=== PATIENT | female | born 1965 | race Caucasian/White ===

== ENCOUNTER 2016-06-23 17:06 | Emergency (ER) | payer MEDICARE, OTHER ==
[~2016-06-23 17:06] MED LIST: ALBU8I INH; ASPI81TA82 PO; CLON.1 PO; DARU800T PO; DESCOVY PO; GABA600T PO; LEVA750T PO; METH5SOL3 PO; ONDA4TAB7 PO; RANI150 PO; RITO100 PO; ROSU10; TAB-TAB PO; TIOT1AER INH; VALT1TAB26 PO
[2016-06-23 17:07] VITALS: BP 123/89; PULSE 97; RESP 17; TEMP 98.1; O2SAT 97
== END 2016-06-23 22:26 | disposition left against medical advice (07) ==
LOC: NETRI 17:06 → NED 17:45 → NETRI 21:09
DX: R10.9 Unspecified abdominal pain (principal); Z53.21 Procedure and treatment not carried out due to patient leaving prior to being seen by health care provider
CPT/HCPCS: 99281

== ENCOUNTER 2017-08-26 13:16 | Emergency (ER) | payer MEDICARE, OTHER ==
[~2017-08-26] VITALS: Ht 167.6 cm; Wt 60.0 kg
[2017-08-26 13:40] VITALS: BP 113/76; PULSE 86; RESP 17; TEMP 97.7; O2SAT 99
[2017-08-26] MEDS ORDERED: SODIUM CHLOR 0.9% 1000 ML INJ 1,000 ML IV ONE (18:00)
--- NOTE | 2017-08-26 18:24 | RADRPT ---
EXAM DATE/TIME: 08/26/2017 18:00 [place] COMPARISON: No previous studies available for comparison. INDICATIONS : Shortness of breath. Cough. MEDICAL HISTORY : Carcinoma, lung. SURGICAL HISTORY : Lobectomy. ENCOUNTER: Initial ACUITY: 2 weeks PAIN SCORE: 0/10 LOCATION: Bilateral chest FINDINGS: PA and lateral views of the chest demonstrate the lungs to be symmetrically aerated without evidence of mass, infiltrate or effusion. The lungs are hyperinflated. The cardiomediastinal contours are unr emarkable. Osseous structures are intact. CONCLUSION: Hyperinflated lungs. No focal abnormality is seen. Guille Jimenez MD on August 26, 2017 at 18:20 Board Certified Radiologist. This report was verified electronically.
[2017-08-26 18:38] LABS: ALKALINE PHOSPHATASE 91 U/L (45-117); TOTAL BILIRUBIN ADULT 0.2 MG/DL (0.2-1.0); TOTAL PROTEIN 8.6 GM/DL (6.4-8.2)
[2017-08-26 18:44] LABS: ALT (GPT) 26 U/L (10-53); AST (GOT) 25 U/L (15-37); AUTOMATED NEUTROPHIL # 4.6 TH/MM3 (1.8-7.7); BASOPHIL # 0.1 TH/MM3 (0-0.2); BASOPHIL % 0.9 % (0.0-2.0); BICARBONATE 24.8 MEQ/L (21.0-32.0); BLOOD UREA NITROGEN 9 MG/DL (7-18); CALCIUM 9.4 MG/DL (8.5-10.1); CHLORIDE 105 MEQ/L (98-107); EOSINOPHIL # 0.1 TH/MM3 (0-0.4); GLOMERULAR FILTRATION RATE 66 ML/MIN (>89); GLUCOSE,RANDOM 95 MG/DL (74-106); HEMATOCRIT 40.7 % (35.0-46.0); HEMOGLOBIN 14.1 GM/DL (11.6-15.3); LYMPH % 27.6 % (9.0-44.0); MEAN CELL VOLUME 91.4 FL (80.0-100.0); MEAN CORPUSCULAR HEMOGLOBIN 31.8 PG (27.0-34.0); MEAN CORPUSCULAR HGB CONC 34.8 % (32.0-36.0); MEAN PLATELET VOLUME 9.3 FL (7.0-11.0); MONO % 8.2 % (0.0-8.0); MONOCYTE # 0.6 TH/MM3 (0-0.9); NEUT % 62.3 % (16.0-70.0); PLATELET COUNT 302 TH/MM3 (150-450); RED BLOOD COUNT 4.45 MIL/MM3 (4.00-5.30); SODIUM (NA) 139 MEQ/L (136-145); WHITE BLOOD COUNT 7.4 TH/MM3 (4.0-11.0)
--- NOTE | 2017-08-26 18:51 | PD ---
HPI Chief Complaint: Dizziness Time Seen by Provider: 17:44 Travel History International Travel<30 days: No Contact w/Intl Traveler<30days: No Traveled to known affect area: No History of Present Illness HPI 51-year-old female history of a failed disease about the history HIV, lung cancer, who presents today with complaints of dizziness and weakness. The patient states that she is going through acute life stressors. She reports that she was recently homeless secondary to not being able to pay for an apartment. She reports that she was out on the streets for 2 weeks. She reports that she is now found a room to rent however she is feeling so bad she is worried that something may happen to her. Patient reports she has been off of her HIV medicines for at least 6 months. She also reports that she is going through severe stress and wishes to be Brooks acted. When asked why she was wanting to be Brooks acted, she reported she is very depressed. She denies any homicidal or suicidal ideation. She just reports that she cannot handle what is going on in her life at this point. PFSH Past Medical History Arthritis: Yes Asthma: Yes Autoimmune Disease: Yes Blood Disorders: Yes (HIV- AIDS) Bipolar Disorder: Yes Anxiety: Yes Depression: Yes Heart Rhythm Problems: No Cancer: Yes (CERVICAL CONE PROCEDURE, lung with r lobectomy) Cardiovascular Problems: Yes High Cholesterol: Yes Chemotherapy: No Chest Pain: No Congestive Heart Failure: No COPD: No Cerebrovascular Accident: No Diabetes: No Diminished Hearing: No Endocrine: No Gastrointestinal Disorders: Yes GERD: Yes Glaucoma: No Genitourinary: Yes (HX CEVICAL CA) Headaches: Yes Hepatitis: Yes (HX HEPATITIS B) Hypertension: No Immune Disorder: Yes (HIV+) Kidney Stones: No Musculoskeletal: Yes Neurologic: Yes (NEUROPATHY BILATERAL FEET AND LEGS. ) Psychiatric: Yes (PTSD) Reproductive: No Respiratory: Yes Immunizations Current: No Migraines: Yes Myocardial Infarction: No Radiation Therapy: No Renal Failure: No Seizures: No Sickle Cell Disease: No Sleep Apnea: Yes Thyroid Disease: No Ulcer: Yes ?: Not Menopausal: Yes : 3 Para: 3 Tubal Ligation: Yes Past Surgical History Abdominal Surgery: No AICD: No Body Medical Devices: HIV POSITIVE Cardiac Surgery: No Ear Surgery: No Endocrine Surgery: No Eye Surgery: No Genitourinary Surgery: No Gynecologic Surgery: Yes (TUBAL LIGATION / HYSTERECTOMY ) Hysterectomy: Yes Neurologic Surgery: No Oral Surgery: No Pacemaker: No Thoracic Surgery: Yes (right lobectomy) Other Surgery: Yes (CYSTS REMOVED LLE / SONYA SHOULDER SX ) Social History Alcohol Use: No Tobacco Use: Yes (E-CIGS DAILY / WEARS 7MG PATCH ) Substance Use: No (5 YRS) Allergies-Medications (Allergen,Severity, Reaction): Coded Allergies: No Known Allergies (Verified Adverse Reaction, Unknown, 08/26/17) Reported Meds & Prescriptions Reported Meds & Active Scripts Active Levaquin 750 Mg Tab (Levofloxacin) 750 Mg Tab 750 Mg PO DAILY Ventolin Hfa (Albuterol Sulfate) 8 Gm Aero 2 Puff INH Q6 PRN * SHAKE WELL BEFORE USE * Reported Prezista (Darunavir Ethanolate) 800 Mg Tab 800 Mg PO HS [Descovy] 200 Mg PO DAILY Crestor (Rosuvastatin Calcium) 10 Mg Tab 5 Mg DAILY Catapres 0.1 mg (Clonidine HCl) 0.1 Mg Tab 1 Tab PO EVERY OTHER DAY Ondansetron Odt (Ondansetron HCl) 4 Mg Tab 4 Mg PO ONCE Stiolto Respimat 2.5-2.5 Mcg/Act (Tiotropium [place]-Olodaterol) 1 Aer Aer 4 Gm INH DAILY Multivitamin (Multivitamins) 1 Tab Tab 1 Tab PO DAILY Zantac 150 Mg Tab (Ranitidine HCl) 150 Mg Tab 150 Mg PO BID Methadone Hcl (Methadone HCl) 5 Mg/5 Ml [place]ia 10 Mg PO QID Valtrex (Valacyclovir HCl) 1 Gm Tab 1 Gm PO DAILY Norvir (Ritonavir) 100 Mg Cap 100 Mg PO DAILY Gabapentin 600 Mg Tab 800 Mg PO QID Aspir-81 (Aspirin) 81 Mg Tab 81 Mg PO DAILY Review of Systems Except as stated in HPI: all other systems reviewed are Neg HENT: Positive: Lightheadedness, No: Headaches, Neck Pain Cardiovascular: No: Chest Pain or Discomfort Respiratory: Positive: Cough, No: Shortness of Breath Gastrointestinal: No: Nausea, Vomiting, Abdominal Pain Genitourinary: No: Frequency, Dysuria Musculoskeletal: Positive: Weakness, No: Pain Skin: No Rash Neurologic: Positive: Weakness, Dizziness, No: Headache Physical Exam Narrative GENERAL: Well-developed well-nourished female in no acute respiratory distress. Patient started to cry when I entered the room. She is very tearful and emotional. SKIN: Focused skin assessment warm/dry. HEAD: Atraumatic. Normocephalic. EYES: Pupils equal and round. No scleral icterus. No injection or drainage. ENT: No nasal bleeding or discharge. Mucous membranes pink and moist. NECK: Trachea midline. Supple. CARDIOVASCULAR: Regular rate and rhythm. No murmur appreciated. RESPIRATORY: No accessory muscle use. Clear to auscultation. Breath sounds equal bilaterally. GASTROINTESTINAL: Abdomen soft, non-tender, nondistended. MUSCULOSKELETAL: No obvious deformities. No clubbing. No cyanosis. No edema. NEUROLOGICAL: Awake and alert. No obvious cranial nerve deficits. Motor grossly within normal limits. Normal speech. PSYCHIATRIC: Tearful and emotionally labile. Data Data Last Documented VS Vital Signs Date Time Temp Pulse Resp B/P (MAP) Pulse Ox O2 Delivery O2 Flow Rate FiO2 08/26/17 13:40 97.7 86 17 113/76 (88) 99 Orders Orders Complete Blood Count With Diff (08/26/17 17:46) Comprehensive Metabolic Panel (08/26/17 17:46) Chest, Pa & Lat (08/26/17 17:46) Iv Access Insert/Monitor (08/26/17 17:46) Ecg Monitoring (08/26/17 17:46) Oximetry (08/26/17 17:46) Psych Screen (08/26/17 17:46) Sodium Chlor 0.9% 1000 Ml Inj (Ns 1000 M (08/26/17 18:00) Labs Laboratory Tests Test 08/26/17 18:01 White Blood Count 7.4 TH/MM3 Red Blood Count 4.45 MIL/MM3 Hemoglobin 14.1 GM/DL Hematocrit 40.7 % Mean Corpuscular Volume 91.4 FL Mean Corpuscular Hemoglobin 31.8 PG Mean Corpuscular Hemoglobin Concent 34.8 % Red Cell Distribution Width 13.0 % Platelet Count 302 TH/MM3 Mean Platelet Volume 9.3 FL Neutrophils (%) (Auto) 62.3 % Lymphocytes (%) (Auto) 27.6 % Monocytes (%) (Auto) 8.2 % Eosinophils (%) (Auto) 1.0 % Basophils (%) (Auto) 0.9 % Neutrophils # (Auto) 4.6 TH/MM3 Lymphocytes # (Auto) 2.0 TH/MM3 Monocytes # (Auto) 0.6 TH/MM3 Eosinophils # (Auto) 0.1 TH/MM3 Basophils # (Auto) 0.1 TH/MM3 CBC Comment DIFF FINAL Differential Comment Blood Urea Nitrogen 9 MG/DL Creatinine 0.90 MG/DL Random Glucose 95 MG/DL Total Protein 8.6 GM/DL Albumin 4.0 GM/DL Calcium Level 9.4 MG/DL Alkaline Phosphatase 91 U/L Aspartate Amino Transf (AST/SGOT) 25 U/L Alanine Aminotransferase (ALT/SGPT) 26 U/L Total Bilirubin 0.2 MG/DL Sodium Level 139 MEQ/L Potassium Level 3.8 MEQ/L Chloride Level 105 MEQ/L Carbon Dioxide Level 24.8 MEQ/L Anion Gap 9 MEQ/L Estimat Glomerular Filtration Rate 66 ML/MIN MDM Medical Decision Making Medical Screen Exam Complete: Yes Emergency Medical Condition: Yes Differential Diagnosis Metabolic derangement versus infection versus poor social situation versus acute life stressors Narrative Course 51-year-old female history of HIV, lung cancer, presents today with complaints of weakness. Patient also reports acute agitation and life stressors. Laboratory tests and chest x-ray are within normal limits. The patient wishes to speak with the psychiatric counselor. She wanted me to Brooks after however at this point she did not meet Brooks act criteria. While she has acute life stressors she is willing to be seen and come involuntary if she needs to. There is a psych screen pending. Case was signed out to Dr. Kramer. After she is screened, disposition will be per him. Diagnosis Primary Impression: Weakness Additional Impressions: Poor social situation History of HIV disease History of lung cancer Acute life stressors Eamon Stoner MD Aug 26, 2017 18:51
[2017-08-26] MEDS ORDERED: LORazepam 1 MG TAB PO ONE (20:45)
[2017-08-26 21:30] VITALS: BP 111/65
== END 2017-08-26 21:30 | disposition left against medical advice (07) ==
LOC: NEPE 13:16
DX: R53.1 Weakness (principal); B20 Human immunodeficiency virus [HIV] disease; Z59.0 Homelessness; J45.909 Unspecified asthma, uncomplicated; Z85.118 Personal history of other malignant neoplasm of bronchus and lung; Z72.0 Tobacco use
CPT/HCPCS: 71046; 80053; 85025; 96360; 99284; J7030

== ENCOUNTER 2018-04-12 18:42 | Observation (INO) ==
--- NOTE | 2018-04-12 19:12 | ED ---
HPI General Chief Complaint: Respiratory Symptoms Stated Complaint: CHEMO RAD [id number] AGO/MUCUS XYESTERDAY/RINGING EAR Time Seen by Provider: 04/12/18 19:02 History of Present Illness HPI Narrative: Patient is a 50-year-old female with a history of HIV and right partial lobectomy due to lung cancer presenting with a four-day history of upper respiratory symptoms. She states she has had a cough with yellow-green sputum production. Getting worse . no improvement with over the counter meds . Pt has oral candidal and esophagitis getting worse making her unable to eat , losing weight . pt on nystatin rinse no improvement. Pain in center chest , no rsponse to meds Related Data Home Medications Medication Instructions Recorded Confirmed Magic Mouth Wash 5 ml PO 04/12/18 04/12/18 citalopram 20 mg PO DAILY 04/12/18 04/12/18 dexamethasone 4 mg PO Q6H 04/12/18 04/12/18 rupfuxocbx-hzrxckvb-dobktr ala 1 tab PO DAILY 04/12/18 04/12/18 [Odefsey] famotidine 20 mg PO DAILY 04/12/18 04/12/18 gabapentin 800 mg PO QID 04/12/18 04/12/18 ondansetron HCl [Zofran] 8 mg PO TID PRN 04/12/18 04/12/18 prochlorperazine maleate 10 mg PO Q6-8H PRN 04/12/18 04/12/18 Allergies Allergy/AdvReac Type Severity Reaction Status Date / Time No Known Allergies Allergy Verified 04/12/18 18:53 Exam Narrative Exam Narrative: GENERAL: non toxic appearing SKIN: Warm and dry. HEAD: Atraumatic. Normocephalic. EYES: Pupils equal and round. No scleral icterus. No injection or drainage. ENT: No nasal bleeding or discharge. Mucous membranes pink and moist. NECK: Trachea midline. No JVD. CARDIOVASCULAR: Regular rate and rhythm. RESPIRATORY: No accessory muscle use. Clear to auscultation. Breath sounds equal bilaterally. GASTROINTESTINAL: Abdomen soft, non-tender, nondistended. Hepatic and splenic margins not palpable. MUSCULOSKELETAL: Extremities without clubbing, cyanosis, or edema. No obvious deformities. NEUROLOGICAL: Awake and alert. No obvious cranial nerve deficits. Motor grossly within normal limits. Five out of 5 muscle strength in the arms and legs. Normal speech. PSYCHIATRIC: Appropriate mood and affect; insight and judgment normal. Course Initial Documented Vital Signs Temperature 98.0 F 04/12/18 18:47 Pulse Rate 77 04/12/18 18:47 Respiratory Rate 16 04/12/18 18:47 Blood Pressure 120/60 04/12/18 18:47 Pulse Oximetry 99 04/12/18 18:47 Last Documented Vital Signs Temperature 98.8 F 04/13/18 04:00 Pulse Rate 104 H 04/13/18 08:30 Respiratory Rate 28 H 04/13/18 08:30 Blood Pressure 135/70 04/13/18 08:30 Pulse Oximetry 91 L 04/13/18 08:30 Medical Decision Making MDM Narrative Medical decision making narrative: diflucan PO liquid and admitted for further management of esphagitis Medical Screen Exam Complete: Yes Emergency Medical Condition: Yes Differential Diagnosis Differential Diagnosis: esophagitis vs pharyngitis vs PNA VS CAD VS [place] VS PTX other Lab Data Result diagrams: 04/12/18 20:19 04/13/18 04:46 Lab Results 04/12/18 04/12/18 04/12/18 Range/Units 20:19 20:19 20:19 CBC w Diff Auto diff final WBC 11.2 H (4.0-11.0) th/mm3 RBC 3.48 L (4.00-5.30) mil/mm3 Hgb 11.0 L (11.6-15.3) gm/dL Hct 33.3 L (35.0-46.0) % MCV 95.7 (80.0-100.0) fL MCH 31.6 (27.0-34.0) pg MCHC 33.1 (32.0-36.0) % RDW 13.2 (11.6-17.2) % Plt Count 251 (150-450) th/mm3 MPV 7.8 (7.0-11.0) fL Neut % (Auto) 88.2 H (16.0-70.0) % Lymph % (Auto) 7.6 L (9.0-44.0) % [place] % (Auto) 1.8 (0.0-8.0) % Eos % (Auto) 0.0 (0.0-4.0) % Baso % (Auto) 2.4 H (0.0-2.0) % Neut # (Auto) 9.9 H (1.8-7.7) th/mm3 Lymph # (Auto) 0.8 L (1.0-4.8) th/mm3 [place] # (Auto) 0.2 (0.0-0.9) th/mm3 Eos # (Auto) 0.0 (0.0-0.4) th/mm3 Baso # (Auto) 0.3 H (0.0-0.2) th/mm3 WBC Differential . Differential Comment . Sodium 137 (136-145) meq/L Potassium 4.1 (3.5-5.1) meq/L Chloride 102 (98-107) meq/L Carbon Dioxide 29.1 (21.0-32.0) meq/L Anion Gap 6 (5-15) meq/L BUN 23 H (7-18) mg/dL Creatinine 0.70 (0.50-1.00) mg/dL Estimated GFR 88 L (>89) mL/min Random Glucose 107 H (74-106) mg/dL Lactic Acid 2.0 (0.4-2.0) mmol/L Calcium 8.4 L (8.5-10.1) mg/dL Total Bilirubin 0.3 (0.2-1.0) mg/dL AST 14 L (15-37) U/L ALT 25 (10-53) U/L Alkaline Phosphatase 58 (45-117) U/L Total Protein 6.0 L (6.4-8.2) g/dL Albumin 2.9 L (3.4-5.0) g/dL Prealbumin (20-40) mg/dL Lipase 114 (73-393) U/L 04/13/18 04/13/18 Range/Units 04:46 04:46 CBC w Diff WBC (4.0-11.0) th/mm3 RBC (4.00-5.30) mil/mm3 Hgb (11.6-15.3) gm/dL Hct (35.0-46.0) % MCV (80.0-100.0) fL MCH (27.0-34.0) pg MCHC (32.0-36.0) % RDW (11.6-17.2) % Plt Count (150-450) th/mm3 MPV (7.0-11.0) fL Neut % (Auto) (16.0-70.0) % Lymph % (Auto) (9.0-44.0) % [place] % (Auto) (0.0-8.0) % Eos % (Auto) (0.0-4.0) % Baso % (Auto) (0.0-2.0) % Neut # (Auto) (1.8-7.7) th/mm3 Lymph # (Auto) (1.0-4.8) th/mm3 [place] # (Auto) (0.0-0.9) th/mm3 Eos # (Auto) (0.0-0.4) th/mm3 Baso # (Auto) (0.0-0.2) th/mm3 WBC Differential Differential Comment Sodium 137 (136-145) meq/L Potassium 4.0 (3.5-5.1) meq/L Chloride 102 (98-107) meq/L Carbon Dioxide 28.1 (21.0-32.0) meq/L Anion Gap 7 (5-15) meq/L BUN 24 H (7-18) mg/dL Creatinine 0.62 (0.50-1.00) mg/dL Estimated GFR Greater than 89 (>89) mL/min Random Glucose 109 H (74-106) mg/dL Lactic Acid (0.4-2.0) mmol/L Calcium 8.4 L (8.5-10.1) mg/dL Total Bilirubin 0.3 (0.2-1.0) mg/dL AST 10 L (15-37) U/L ALT 23 (10-53) U/L Alkaline Phosphatase 56 (45-117) U/L Total Protein 5.6 L (6.4-8.2) g/dL Albumin 2.8 L (3.4-5.0) g/dL Prealbumin 26 (20-40) mg/dL Lipase (73-393) U/L Discharge Plan Discharge Disposition Patient Disposition: 30 Still Patient Discharge Condition Condition: Stable Discharge Order Discharge Orders: AMA Discharge (Routine); Ordered 04/13/18 Ordered By: Krys Tai Physicians Team ED Provider: Edouard Vogt Primary Care Provider: Demetrio Tee Attending Provider: Krys Tai Other Providers: Harman Quintanilla Status ED Status: Left Department Discharge Information Discharge Date/Time: 04/12/18 23:12
[2018-04-12] MEDS ORDERED: Morphine Inj 4 MG/ML Vial IV.PUSH ONE (19:41)
[2018-04-12] MEDS ORDERED: Famotidine PF Inj 20 MG/2 ML Vial IV.PUSH ONE (19:42)
[2018-04-12] MEDS ORDERED: Nystatin Liq 500,000 UNIT/5 ML UDC SWISH-SWAL ONE (19:44)
[2018-04-12] MEDS ORDERED: Sodium Chlor 0.9% Inj 500 ML IV.SIG ONE (19:44)
[2018-04-12] MEDS ORDERED: Heparin Central Flush 100 UNIT/ML 5 ML Vial IV.FLUSH ONE (19:49)
[2018-04-12 20:33] LABS: Baso # (Auto) 0.3 th/mm3 (0.0-0.2); Baso % (Auto) 2.4 % (0.0-2.0); Hematocrit 33.3 % (35.0-46.0); Lymph # (Auto) 0.8 th/mm3 (1.0-4.8); Lymph % (Auto) 7.6 % (9.0-44.0); Mean Corpuscular HGB Conc 33.1 % (32.0-36.0); Mean Corpuscular Hemoglobin 31.6 pg (27.0-34.0); Mean Corpuscular Volume 95.7 fL (80.0-100.0); Mean Platelet Volume 7.8 fL (7.0-11.0); Mono # (Auto) 0.2 th/mm3 (0.0-0.9); Mono % (Auto) 1.8 % (0.0-8.0); Neut # (Auto) 9.9 th/mm3 (1.8-7.7); Neut % (Auto) 88.2 % (16.0-70.0); Platelet Count 251 th/mm3 (150-450); Red Blood Count 3.48 mil/mm3 (4.00-5.30); Red Cell Distribution Width 13.2 % (11.6-17.2); White Blood Count 11.2 th/mm3 (4.0-11.0)
[2018-04-12 20:40] LABS: Chloride 102 meq/L (98-107); Potassium 4.1 meq/L (3.5-5.1); Sodium 137 meq/L (136-145)
[2018-04-12 20:43] LABS: Albumin 2.9 g/dL (3.4-5.0); Anion Gap 6 meq/L (5-15); Calcium 8.4 mg/dL (8.5-10.1); Carbon Dioxide 29.1 meq/L (21.0-32.0); Glucose,Random 107 mg/dL (74-106); Lipase 114 U/L (73-393)
[2018-04-12 20:44] LABS: Blood Urea Nitrogen 23 mg/dL (7-18)
[2018-04-12 20:46] LABS: Alanine Aminotransferase 25 U/L (10-53); Aspartate Aminotransferase 14 U/L (15-37); Glomerular Filtration Rate 88 mL/min (>89)
[2018-04-12 20:49] LABS: Alkaline Phosphatase 58 U/L (45-117)
[2018-04-13] MEDS ORDERED: Morphine Inj 4 MG/ML Vial IV.PUSH ONE (02:52)
[2018-04-13 05:29] LABS: Chloride 102 meq/L (98-107); Sodium 137 meq/L (136-145)
[2018-04-13 05:32] LABS: Calcium 8.4 mg/dL (8.5-10.1)
[2018-04-13 05:33] LABS: Albumin 2.8 g/dL (3.4-5.0); Anion Gap 7 meq/L (5-15); Blood Urea Nitrogen 24 mg/dL (7-18); Carbon Dioxide 28.1 meq/L (21.0-32.0); Glucose,Random 109 mg/dL (74-106)
[2018-04-13 05:36] LABS: Alanine Aminotransferase 23 U/L (10-53); Aspartate Aminotransferase 10 U/L (15-37); Glomerular Filtration Rate Greater Than 89 mL/min (>89)
[2018-04-13 05:38] LABS: Total Protein 5.6 g/dL (6.4-8.2)
[2018-04-13 05:39] LABS: Alkaline Phosphatase 56 U/L (45-117)
[2018-04-13 05:55] VITALS: TEMP 98.8
[2018-04-13] MEDS ORDERED: FLUCONAZOLE 10 MG/ML PO SCH (09:00)
[2018-04-13] MEDS ORDERED: Nystatin/Diphenhydramine/Lidocaine Mouthwash (Adult) 120 ML Botttle SWISH-SPIT SCH (09:00)
--- NOTE | 2018-04-13 09:19 | P.HP ---
History of Present Illness Primary Care Physician: Demetrio Tee DO History of Present Illness: 50-year-old female with a history of HIV/AIDS, throat CA and lung CA and right partial lobectomy due to lung cancer presenting with a four-day history of upper respiratory symptoms. Reported cough with yellow-green sputum production. With oral pavel. Patient left AMA PMFSH - History History Provided By: Patient - Medical History Medical History: Medical History (Last Reviewed 04/13/18 @ 09:07 by Krys Tai MD) HIV (human immunodeficiency virus infection) Lung cancer Throat cancer - Surgical History Surgical History: Surgical History (Last Reviewed 04/13/18 @ 09:07 by Krys Tai MD) S/P lobectomy of lung - Tobacco History Second Hand Smoke Exposure: Yes Tobacco Use In Past 30 Days: Yes Smoking Status: Current every day smoker Tobacco Type: Cigarettes - Alcohol History How Often Do You Have a Drink Containing Alcohol: Never - Substance Use History Substance History: No History of Abuse - Immunization History Tetanus Immunization: >5 Years Medications and Allergies Active Medications: Active Medications Hydrocodone Bitart/Acetaminophen ([place] 5/325) 1 tab G-TUBE Q4H PRN PRN Reason: pain 1 to 10 Last Admin: 04/13/18 07:47 Dose: 1 tab Fluconazole (Diflucan Liq) 150 mg PO DAILY CHERISE Last Admin: 04/13/18 08:12 Dose: 150 mg Multi-Ingredient Mouthwash/Gargle (Magic Mouthwash Adult Liq) 5 ml SWISH-SPIT QID CHERISE Ondansetron HCl (Zofran Inj) 4 mg IV.PUSH Q6H PRN PRN Reason: NAUSEA OR VOMITING Last Admin: 04/13/18 08:21 Dose: 4 mg Allergies Allergy/AdvReac Type Severity Reaction Status Date / Time No Known Allergies Allergy Verified 04/12/18 18:53 Home Medications Medication Instructions Recorded Confirmed Type Magic Mouth Wash 5 ml PO 04/12/18 04/12/18 History citalopram 20 mg PO DAILY 04/12/18 04/12/18 History dexamethasone 4 mg PO Q6H 04/12/18 04/12/18 History nqrmsunrhb-yobxntgk-eyqvjo ala 1 tab PO DAILY 04/12/18 04/12/18 History [Odefsey] famotidine 20 mg PO DAILY 04/12/18 04/12/18 History gabapentin 800 mg PO QID 04/12/18 04/12/18 History ondansetron HCl [Zofran] 8 mg PO TID PRN 04/12/18 04/12/18 History prochlorperazine maleate 10 mg PO Q6-8H PRN 04/12/18 04/12/18 History Exam Vital signs: Vital Signs 04/12/18 18:47 04/12/18 21:15 04/12/18 22:40 Temperature 98.0 F Pulse Rate 77 58 L 82 Respiratory Rate 16 16 16 Blood Pressure 120/60 148/75 H 138/85 Pulse Oximetry 99 100 04/13/18 00:00 04/13/18 04:00 Temperature 98.2 F 98.8 F Pulse Rate 60 64 Respiratory Rate 22 20 Blood Pressure 130/77 128/74 Pulse Oximetry 99 99 Intake & Output 04/12/18 04/13/18 04/13/18 18:59 06:59 18:59 Intake Total 500 / 500 0 / 0 Output Total 500 / 500 500 / 500 Balance 0 / 0 -500 / -500 Weight 61 kg 61.6 kg Intake: IV 500 / 500 NS Inj 500 ML @ Wide Open IV. 500 / 500 SIG BOLUS ONE Rx#:[id number] Oral 0 / 0 0 / 0 Output: Urine 500 / 500 500 / 500 Other: # Voids 2 2 Weight On Admission 61.6 kg Narrative: Left AMA Results - Labs CBC & Chem 7: 04/12/18 20:19 04/13/18 04:46 Labs: Laboratory Results - last 24 hr 04/12/18 04/12/18 04/12/18 20:19 20:19 20:19 CBC w Diff Auto diff final WBC 11.2 H RBC 3.48 L Hgb 11.0 L Hct 33.3 L MCV 95.7 MCH 31.6 MCHC 33.1 RDW 13.2 Plt Count 251 MPV 7.8 Neut % (Auto) 88.2 H Lymph % (Auto) 7.6 L [place] % (Auto) 1.8 Eos % (Auto) 0.0 Baso % (Auto) 2.4 H Neut # (Auto) 9.9 H Lymph # (Auto) 0.8 L [place] # (Auto) 0.2 Eos # (Auto) 0.0 Baso # (Auto) 0.3 H WBC Differential . Differential Comment . Sodium 137 Potassium 4.1 Chloride 102 Carbon Dioxide 29.1 Anion Gap 6 BUN 23 H Creatinine 0.70 Estimated GFR 88 L Random Glucose 107 H Lactic Acid 2.0 Calcium 8.4 L Total Bilirubin 0.3 AST 14 L ALT 25 Alkaline Phosphatase 58 Total Protein 6.0 L Albumin 2.9 L Lipase 114 04/13/18 04:46 CBC w Diff WBC RBC Hgb Hct MCV MCH MCHC RDW Plt Count MPV Neut % (Auto) Lymph % (Auto) [place] % (Auto) Eos % (Auto) Baso % (Auto) Neut # (Auto) Lymph # (Auto) [place] # (Auto) Eos # (Auto) Baso # (Auto) WBC Differential Differential Comment Sodium 137 Potassium 4.0 Chloride 102 Carbon Dioxide 28.1 Anion Gap 7 BUN 24 H Creatinine 0.62 Estimated GFR Greater than 89 Random Glucose 109 H Lactic Acid Calcium 8.4 L Total Bilirubin 0.3 AST 10 L ALT 23 Alkaline Phosphatase 56 Total Protein 5.6 L Albumin 2.8 L Lipase Caprini VTE Risk Assessment Caprini VTE Risk Assessment: No/Low Risk (score <= 1) Caprini Risk Assessment Model: Point Value = 1 Point Value = 2 Point Value = 3 Point Value = 5 Age 41-60 Minor surgery BMI > 25 kg/m2 Swollen legs Varicose veins or History of unexplained or recurrent spontaneous Oral contraceptives or hormone replacement Sepsis (< 1 month) Serious lung disease, including pneumonia (< 1 month) Abnormal pulmonary function Acute myocardial infarction Congestive heart failure (< 1 month) History of inflammatory bowel disease Medical patient at bed rest Age 61-74 Arthroscopic surgery Major open surgery (> 45 min) Laparoscopic surgery (> 45 min) Malignancy Confined to bed (> 72 hours) Immobilizing plaster cast Central venous access Age >= 75 History of VTE Family history of VTE Factor V Leiden Prothrombin [id number] Lupus anticoagulant Anticardiolipin antibodies Elevated serum homocysteine Heparin-induced thrombocytopenia Other congenital or acquired thrombophilia Stroke (< 1 month) Elective arthroplasty Hip, pelvis, or leg fracture Acute spinal cord injury (< 1 month) Prophylaxis Regimen: Total Risk Factor Score Risk Level Prophylaxis Regimen 0-1 Low Early ambulation 2 Moderate Order ONE of the following: *Sequential Compression Device (SCD) *Heparin 5000 units SQ BID 3-4 Higher Order ONE of the following medications: *Heparin 5000 units SQ TID *Enoxaparin/Lovenox 40 mg SQ daily (WT < 150 kg, CrCl > 30 mL/min) *Enoxaparin/Lovenox 30 mg SQ daily (WT < 150 kg, CrCl > 10-29 mL/min) *Enoxaparin/Lovenox 30 mg SQ BID (WT < 150 kg, CrCl > 30 mL/min) AND/OR *Sequential Compression Device (SCD) 5 or more Highest Order ONE of the following medications: *Heparin 5000 units SQ TID (Preferred with Epidurals) *Enoxaparin/Lovenox 40 mg SQ daily (WT < 150 kg, CrCl > 30 mL/min) *Enoxaparin/Lovenox 30 mg SQ daily (WT < 150 kg, CrCl > 10-29 mL/min) *Enoxaparin/Lovenox 30 mg SQ BID (WT < 150 kg, CrCl > 30 mL/min) AND *Sequential Compression Device (SCD) Assessment and Plan - Plan 50-year-old female with a history of HIV/AIDS, throat CA and lung CA and right partial lobectomy due to lung cancer presenting with a four-day history of upper respiratory symptoms. Pavel esophagitis AIDS Failure to thrive Anorexia. Severe protein calorie malnutrition H/o Throat CA and lung CA and right partial lobectomy due to lung cancer Blood cx pending Started on fluconazole IV. Magic wash. Will consider ID consultation Dr Quintanilla hem/onc consulted. Check prealbumin, consult sterile processing technologist NPO Do swallow eval Restart home meds as appropriate DC plan: Patient left AMA
[2018-04-13 09:43] VITALS: BP 135/70; PULSE 104; RESP 28; O2SAT 91
--- NOTE | 2018-04-13 12:00 | P.AMA ---
AMA Note AMA Statement: Patient Cristina Haynes has decided to leave the hospital against medical advice. This patient has the capacity to refuse care and understands the risks of leaving, including permanent disability and/or , and has had an opportunity to ask questions about his/her condition. The patient has been informed that he/she may return for care at any time, and follow up has been arranged/advised. Discharge Disposition: Against Medical Advice Patient Condition on Discharge: Stable
== END 2018-04-13 09:45 | disposition left against medical advice (07) ==
LOC: PHED 18:42 → PHEDA 18:42 → PHICU 23:12
PROVIDERS: ADMIT Hospitalist; ATTEND Hospitalist

== ENCOUNTER 2018-05-30 12:11 | Inpatient (IN) ==
[2018-05-30] MEDS ORDERED: Vancomycin Inj 1,000 MG in Sodium Chlor 0.9% Inj 250 ML IV.SIG ONE (13:04)
[2018-05-30] MEDS ORDERED: Morphine Inj 4 MG/ML Vial IV.PUSH ONE (13:10)
[2018-05-30] MEDS ORDERED: Sod Chloride 0.9% Inj 1,000 ML IV.SIG SCH (13:15)
--- NOTE | 2018-05-30 13:21 | ED ---
HPI General Chief complaint: Skin/Abscess/Foreign Body Stated complaint: Poss Infection Time Seen by Provider: 05/30/18 12:55 Source: patient and family Mode of arrival: wheelchair Limitations: no limitations History of Present Illness HPI narrative: 52-year-old female that presents to the ED for evaluation of not feeling well and possible infection to her left thumb. Per patient she was admitted to the hospital for facial on Monday. Per patient she was seen there essentially for feeding tube malfunction and she had to be admitted as they could not fix the tube until the next day. apparently while she was there she developed a significant infection to her left thumb. From what it appears patient apparently had an incision and drainage of the wound under anesthesia and had surgery for this and she was put on antibiotics. Per patient she left AMA yesterday and today she got a call from the hospital that apparently she grew MRSA and a doctors that she needed to get seen. Per patient she try to call her infectious disease doctor she is HIV positive and per patient her last count was 500 and she was undetectable. Per patient unfortunately her doctor is not parts person and is on medication and she was hoping that she could guide her as to see what treatment she will require. She decided to come here because she did not like [facility]. She does not know who did the surgery on her tongue. She denies any fevers chills or sweats but does state feeling weak and tired. Per patient she lost her left index finger from a significant MRSA infection and she is concerned that she will have the same. On the physical exam she does appear to have another infected wound on her right hand. She is unsure as to how she got this and states that this is the similar presentation she had with the other thumb where he does go overnight. She states that she gets chemo and radiation for throat cancer and she last had it on Monday. Per patient she is done with the chemo and radiation for now. She does not know what her CD4 count has been for the past 3 months secondary to the chemo and radiation. She states that currently her pain is 6 out of 10. She states that she is also not feeling well and she feels like she cannot feed herself or take care of herself. Her son apparently takes care of her has been doing feedings through her feeding tube but she feels that she is not getting enough. She denies any diarrhea. No chest pain. No shortness of breath. She still has her port. Related Data Home Medications Medication Instructions Recorded Confirmed dexamethasone 4 mg PO Q6H 04/12/18 05/30/18 hqdswuupeg-dutkwuzt-hqwauk ala 1 tab PO DAILY 04/12/18 05/30/18 [Odefsey] famotidine 20 mg PO DAILY 04/12/18 05/30/18 gabapentin 800 mg PO QID 04/12/18 05/30/18 ondansetron HCl [Zofran] 8 mg PO TID PRN 04/12/18 05/30/18 prochlorperazine maleate 10 mg PO Q6-8H PRN 04/12/18 05/30/18 citalopram 40 mg PO DAILY 05/12/18 05/30/18 fluticasone 2 inh INHALATION HS 05/30/18 05/30/18 umeclidinium-vilanterol [Anoro 2 inh INHALATION Q24H 05/30/18 05/30/18 Ellipta] Allergies Allergy/AdvReac Type Severity Reaction Status Date / Time No Known Allergies Allergy Verified 05/12/18 16:38 Review of Systems ROS: all other systems reviewed are negative PMFSH History History Provided By: Patient and Family Member Medical History Medical History HIV (human immunodeficiency virus infection) (Acute) Lung cancer (Acute) Throat cancer (Acute) Surgical History Surgical History S/P lobectomy of lung (Acute) Family History Family History Other HTN (hypertension) Social History Social History Substance History: No History of Abuse Second Hand Smoke Exposure: Yes Smoking Status: Current every day smoker Tobacco Type: Cigarettes How Often Do You Have a Drink Containing Alcohol: Never Recent Travel in [place] within the Last 8 Weeks: No Recent Out of Country Travel within the Last 8 Weeks: No Exam Narrative Exam Narrative: GENERAL: Anxious but well groomed SKIN: Focused skin assessment warm/dry. HEAD: Atraumatic. Normocephalic. EYES: Pupils equal and round. No scleral icterus. No injection or drainage. ENT: No nasal bleeding or discharge. Mucous membranes pink and moist. Tongue is midline. No Uvula deviation. NECK: Trachea midline. No JVD. CARDIOVASCULAR: Regular rate and rhythm. No murmur appreciated. RESPIRATORY: No accessory muscle use. Clear to auscultation. Breath sounds equal bilaterally. GASTROINTESTINAL: Abdomen soft, non-tender, nondistended. Hepatic and splenic margins not palpable. Patient has full range of motion of all digits. Patient does appear to have a area of erythema and possible induration on the right hand which appears to be about 2 cm in diameter warm to touch. Slightly tender to touch but minimal. No purulence noted. Patient has a surgical wound on the left thumb where she has sutures as well as a packing in place. She does have purulence and redness noted on the thumb. Good capillary refill. Sensation intact bilaterally. MUSCULOSKELETAL: No obvious deformities. No clubbing. No cyanosis. No edema. Full range of motion of the upper and lower extremities bilaterally. 2+ pulses bilaterally. NEUROLOGICAL: Awake and alert. No obvious cranial nerve deficits. Motor grossly within normal limits. Normal speech. PSYCHIATRIC: Appropriate mood and affect; insight and judgment normal. Course Initial Documented Vital Signs Temperature 98.9 F 05/30/18 12:25 Pulse Rate 100 H 05/30/18 12:25 Respiratory Rate 20 05/30/18 12:25 Blood Pressure 123/84 05/30/18 12:25 Pulse Oximetry 100 05/30/18 12:25 Last Documented Vital Signs Temperature 98.1 F 05/31/18 04:00 Pulse Rate 69 05/31/18 04:00 Respiratory Rate 16 05/31/18 04:00 Blood Pressure 100/59 L 05/31/18 04:00 Pulse Oximetry 98 05/31/18 04:00 Medical Decision Making OSCAR Attestation OSCAR supervised visit: Yes Attestation: I, Dr. Stoner, have reviewed the advance practice practitioner's documentation and am in agreement, met with the patient face to face, made the diagnosis, and the medical decision making was done by me. *My assessment and Findings: MRSA of the right thumb. History of HIV disease. Throat cancer currently under treatment with radiation and chemo. Patient is immunocompromised by chemo and HIV disease. She will be admitted for IV antibiotics for her MRSA infection. She is previously lost her left index finger from MRSA. She understands the importance of not signing out a AMA and is willing to stay for treatment. MDM Narrative Medical decision making narrative: 52-year-old female who presents to the ED for evaluation of possible finger infection and not feeling well. Labs and imaging were ordered. Records were ordered as well. Patient was started on vancomycin to cover for MRSA as she states that she has had MRSA in the past and apparently the wound grew MRSA and that is what she was called and came here. She was given fluids as well as pain medication and Zofran IV. I suspect that patient will likely will require admission at least forearms for antibiotics secondary to her HIV status as well as her chemoradiation likely weakening her immune system. Labs and imaging did show elevated CRP as well as ESR, white blood cell count appears to be well but still low within normal limits. She does have low lymphocytes. She does have 2 active infections at this time. Because of her significant history to recommend admission. My attending Dr. Stoner evaluate the patient agrees with this plan. Vancomycin and Zosyn were started here. I was able to get the records from the admission she had and apparently she was evaluated by Dr. Kike Espinoza from orthopedics who performed an I&D and put packing on the wound and what appears to be on the May 28. Patient did have MRSA positive wound culture which is susceptible to vancomycin, Bactrim, tetracycline, rifampin, Levaquin, gentamicin, doxycycline, daptomycin. My attending still agrees recommendation for admission for further evaluation and treatment. Case discussed with Dr. Moore who agrees for obs admission. Medical Screen Exam Complete: Yes Emergency Medical Condition: Yes Differential Diagnosis Differential Diagnosis: Finger infection versus noncompliance versus cancer patient versus sepsis versus osteomyelitis Medical Records Medical records reviewed: Yes I reviewed the patient's medical records. Lab Data Lab results reviewed: Yes I reviewed the patient's lab results. Result diagrams: 05/30/18 13:00 05/30/18 13:00 Lab Results 05/30/18 05/30/18 05/30/18 Range/Units 13:00 13:00 13:00 WBC 4.5 (4.0-11.0) th/mm3 RBC 3.05 L (4.00-5.30) mil/mm3 Hgb 10.3 L (11.6-15.3) gm/dL Hct 30.5 L (35.0-46.0) % MCV 99.9 (80.0-100.0) fL MCH 33.9 (27.0-34.0) pg MCHC 33.9 (32.0-36.0) % RDW 17.8 H (11.6-17.2) % Plt Count 338 D (150-450) th/mm3 MPV 7.9 (7.0-11.0) fL Neut % (Auto) 76.1 H (16.0-70.0) % Lymph % (Auto) 15.9 (9.0-44.0) % Chaves % (Auto) 7.6 (0.0-8.0) % Eos % (Auto) 0.3 (0.0-4.0) % Baso % (Auto) 0.1 (0.0-2.0) % Neut # (Auto) 3.4 (1.8-7.7) th/mm3 Lymph # (Auto) 0.7 L (1.0-4.8) th/mm3 Chaves # (Auto) 0.3 (0.0-0.9) th/mm3 Eos # (Auto) 0.0 (0.0-0.4) th/mm3 Baso # (Auto) 0.0 (0.0-0.2) th/mm3 WBC Differential . Differential Comment Auto diff final ESR (0-30) mm/hr Sodium 138 (136-145) meq/L Potassium 3.9 (3.5-5.1) meq/L Chloride 105 (98-107) meq/L Carbon Dioxide 26.0 (21.0-32.0) meq/L Anion Gap 7 (5-15) meq/L BUN 16 (7-18) mg/dL Creatinine 0.66 (0.50-1.00) mg/dL Estimated GFR Greater than 89 (>89) mL/min Random Glucose 90 (74-106) mg/dL Lactic Acid 0.7 (0.4-2.0) mmol/L Calcium 8.9 (8.5-10.1) mg/dL Magnesium 1.9 (1.5-2.5) mg/dL Total Bilirubin 0.4 (0.2-1.0) mg/dL AST 10 L (15-37) U/L ALT 18 (10-53) U/L Alkaline Phosphatase 75 (45-117) U/L C-Reactive Protein 4.42 H (0.00-0.30) mg/dL Total Protein 7.0 (6.4-8.2) g/dL Albumin 3.4 (3.4-5.0) g/dL Urine Color (Yellw/Straw) Urine Clarity (Clear) Urine pH (5.0-8.5) Ur Specific [place] (1.002-1.035) Urine Protein (Neg-Trace) mg/dL Urine Glucose (UA) (Negative) mg/dL Urine Ketones (Negative) mg/dL Urine Occult Blood (Negative) Urine Nitrate (Negative) Urine Bilirubin (Negative) Urine Urobilinogen (Less than 2) mg/dL Ur Leukocyte Esterase (Negative) Urine RBC (0-3) /hpf Urine WBC (0-5) /hpf Ur Squamous Epith Cells (0-5) /hpf Amorphous Sediment (None) /hpf Urine Mucus (Occasional) /lpf Micro UA Comment Ur Microscopic Review Urine Culture Comments 05/30/18 05/30/18 Range/Units 13:00 14:40 WBC (4.0-11.0) th/mm3 RBC (4.00-5.30) mil/mm3 Hgb (11.6-15.3) gm/dL Hct (35.0-46.0) % MCV (80.0-100.0) fL MCH (27.0-34.0) pg MCHC (32.0-36.0) % RDW (11.6-17.2) % Plt Count (150-450) th/mm3 MPV (7.0-11.0) fL Neut % (Auto) (16.0-70.0) % Lymph % (Auto) (9.0-44.0) % Chaves % (Auto) (0.0-8.0) % Eos % (Auto) (0.0-4.0) % Baso % (Auto) (0.0-2.0) % Neut # (Auto) (1.8-7.7) th/mm3 Lymph # (Auto) (1.0-4.8) th/mm3 Chaves # (Auto) (0.0-0.9) th/mm3 Eos # (Auto) (0.0-0.4) th/mm3 Baso # (Auto) (0.0-0.2) th/mm3 WBC Differential Differential Comment ESR 64 H (0-30) mm/hr Sodium (136-145) meq/L Potassium (3.5-5.1) meq/L Chloride (98-107) meq/L Carbon Dioxide (21.0-32.0) meq/L Anion Gap (5-15) meq/L BUN (7-18) mg/dL Creatinine (0.50-1.00) mg/dL Estimated GFR (>89) mL/min Random Glucose (74-106) mg/dL Lactic Acid (0.4-2.0) mmol/L Calcium (8.5-10.1) mg/dL Magnesium (1.5-2.5) mg/dL Total Bilirubin (0.2-1.0) mg/dL AST (15-37) U/L ALT (10-53) U/L Alkaline Phosphatase (45-117) U/L C-Reactive Protein (0.00-0.30) mg/dL Total Protein (6.4-8.2) g/dL Albumin (3.4-5.0) g/dL Urine Color Yellow (Yellw/Straw) Urine Clarity Cloudy H (Clear) Urine pH 7.0 (5.0-8.5) Ur Specific [place] 1.014 (1.002-1.035) Urine Protein Negative (Neg-Trace) mg/dL Urine Glucose (UA) Negative (Negative) mg/dL Urine Ketones Trace H (Negative) mg/dL Urine Occult Blood Small H (Negative) Urine Nitrate Negative (Negative) Urine Bilirubin Negative (Negative) Urine Urobilinogen Less than 2 (Less than 2) mg/dL Ur Leukocyte Esterase Negative (Negative) Urine RBC 2 (0-3) /hpf Urine WBC 1 (0-5) /hpf Ur Squamous Epith Cells 4 (0-5) /hpf Amorphous Sediment Rare H (None) /hpf Urine Mucus Few H (Occasional) /lpf Micro UA Comment Culture not ind Ur Microscopic Review Not Reportable Urine Culture Comments Culture not ind Imaging Data Attestation: I personally reviewed and interpreted this imaging study as follows : Radiologist's impression: Chest X-Ray 05/30/18 13:03 CONCLUSION: No focal or acute infiltrates. No significant change compared to the prior study. Finger X-Ray 05/30/18 13:03 CONCLUSION: 1. Soft tissue swelling involving the tip of the left thumb. 2. No fracture, dislocation or focal bony lesion noted. 3. Status post amputation of the left second digit. Discharge Plan Discharge Disposition Patient Disposition: ED Admit(ED Internal Use Only) Discharge Order Discharge Orders: ED Use Only Admit Order (Routine); Ordered 05/30/18 Ordered By: Gautam Torres Discharge Details Diagnosis: Abscess, Cellulitis, Acquired immunocompromised state Physicians Team ED Provider: Eamon Stoner ED Midlevel Provider: Gautam Torres Primary Care Provider: Demetrio Tee Attending Provider: Oscar Kelly Other Providers: Lindsay Harper Status ED Status: Left Department Discharge Information Discharge Date/Time: 05/30/18 19:29
[2018-05-30 13:40] LABS: Baso % (Auto) 0.1 % (0.0-2.0); Eos % (Auto) 0.3 % (0.0-4.0); Hematocrit 30.5 % (35.0-46.0); Hemoglobin 10.3 gm/dL (11.6-15.3); Lymph # (Auto) 0.7 th/mm3 (1.0-4.8); Lymph % (Auto) 15.9 % (9.0-44.0); Mean Corpuscular HGB Conc 33.9 % (32.0-36.0); Mean Corpuscular Hemoglobin 33.9 pg (27.0-34.0); Mean Corpuscular Volume 99.9 fL (80.0-100.0); Mean Platelet Volume 7.9 fL (7.0-11.0); Mono # (Auto) 0.3 th/mm3 (0.0-0.9); Mono % (Auto) 7.6 % (0.0-8.0); Neut # (Auto) 3.4 th/mm3 (1.8-7.7); Neut % (Auto) 76.1 % (16.0-70.0); Platelet Count 338 th/mm3 (150-450); Red Blood Count 3.05 mil/mm3 (4.00-5.30); Red Cell Distribution Width 17.8 % (11.6-17.2); White Blood Count 4.5 th/mm3 (4.0-11.0)
[2018-05-30 13:51] LABS: Alanine Aminotransferase 18 U/L (10-53); Albumin 3.4 g/dL (3.4-5.0); Anion Gap 7 meq/L (5-15); Aspartate Aminotransferase 10 U/L (15-37); Blood Urea Nitrogen 16 mg/dL (7-18); C-Reactive Protein 4.42 mg/dL (0.00-0.30); Calcium 8.9 mg/dL (8.5-10.1); Chloride 105 meq/L (98-107); Glomerular Filtration Rate Greater Than 89 mL/min (>89); Glucose,Random 90 mg/dL (74-106); Magnesium 1.9 mg/dL (1.5-2.5); Potassium 3.9 meq/L (3.5-5.1); Sodium 138 meq/L (136-145)
[2018-05-30 13:53] LABS: Alkaline Phosphatase 75 U/L (45-117)
--- NOTE | 2018-05-30 14:22 | XR ---
EXAM DATE: 05/30/2018 2:17 PM EST AGE/SEX: 52 years / Female INDICATIONS: Fever. CLINICAL DATA: This is the patient's initial encounter. Patient reports that signs and symptoms have been present for 1 day and indicates a pain score of 0/10. MEDICAL/SURGICAL HISTORY: Carcinoma, lung. Carcinoma, pharyngeal. . Lobectomy. Infuse a port. COMPARISON: [facility] [place]ST PA & LAT, 08/26/2017. . FINDINGS: A single AP view of the chest demonstrates the lungs to be symmetrically aerated without evidence of mass, infiltrate or effusion. The cardiomediastinal contours are unremarkable. Osseous structures a re intact. There is a right-sided Bnnlij-d-Hsow in place. There is no pneumothorax. CONCLUSION: No focal or acute infiltrates. No significant change compared to the prior study. Electronically signed by: Sunny Covarrubias MD Board Certified Radiologist 05/30/2018 2:21 PM EST
--- NOTE | 2018-05-30 14:32 | XR ---
EXAM DATE: 05/30/2018 2:25 PM EST AGE/SEX: 52 years / Female INDICATIONS: drainage from tip of thumb. CLINICAL DATA: This is the patient's initial encounter. Patient reports that signs and symptoms have been present for 1 day and indicates a pain score of 0/10. MEDICAL/SURGICAL HISTORY: Carcinoma, lung. Carcinoma, pharyngeal. . Lobectomy. infuse a port. COMPARISON: No prior exams available for comparison. FINDINGS: There is soft tissue swelling involving the tip of the left thumb. No fracture, dislocation or focal bony lesion within the first phalanges is confirmed. The patient is status post amputation of the lef t second digit. CONCLUSION: 1. Soft tissue swelling involving the tip of the left thumb. 2. No fracture, dislocation or focal bony lesion noted. 3. Status post amputation of the left second digit. Electronically signed by: Luiz Sharma MD Board Certified Radiologist 05/30/2018 2:31 PM EST
[2018-05-30 15:01] LABS: Amorphous Sediment,Urine Rare /hpf; Bilirubin,Urine Negative (Negative); Clarity,Urine Cloudy (Clear); Color,Urine Yellow (Yellw/Straw); Glucose,Urine (UA) Negative (Negative); Leukocyte Esterase,Urine Negative (Negative); Mucus,Urine Few /lpf (Occasional); Nitrite,Urine Negative (Negative); Specific Gravity,Urine 1.014 (1.002-1.035); Squamous Epithelial Cell,Urine 4 /hpf (0-5)
[2018-05-30] MEDS ORDERED: Piperacil/Tazo 3.375 GM Premix 3.375 GM/50 ML PIGGYBACK IV.SIG ONE (15:15)
[2018-05-30] MEDS ORDERED: Vancomycin Consult Pharmacy OTHER PRN (18:35)
--- NOTE | 2018-05-30 18:47 | P.HP ---
History of Present Illness Primary Care Physician: Demetrio Tee DO History of Present Illness: 52-year-old white female being admitted for L thumb cellulitis. Hx of HIV and throat CA. Patient presented to [place] today after being called by [facility] that her wound culture from her left thumb for which she underwent a I&D w/ packing and then left AMA a few days ago was growing MRSA. Patient left AMA yesterday morning, since then she says she is felt subjective fevers, N/V, watery stools and worsening thumb pain. Patient not sure exactly what antibiotics she was receiving there. She underwent I&D by Dr. Stephen Espinoza w/ packing, and had her PEG tube adjusted by Dr. Marcos Alberts. Patient states that her thumb infx started when she had a splinter injury just under a week ago, pulled the splinter out with her teeth. She also noted that her PEG tube was not functioning where she wanted it and thus she presented to the [facility] ED. Patient states she specifically decided come back to [place] because this was the hospital that she had her chemoradiation completed for her throat cancer.In the ED here she has no elevated white count, blood work is unremarkable except for ESR up at 64. Blood cultures were pulled. Given a dose of vancomycin and Zosyn. Sees Dr. Joesph Jacobs for her HIV, says she is on 1 antimicrobial a day for HAART. Says that she is previously lost her left index finger secondary to an MRSA infection. Inpatient Certification: I certify that the inpatient services were ordered in accordance with Medicare regulations governing the order. This includes certification that hospital inpatient services are reasonable and necessary and in the case of services not specified as inpatient-only under 42 CFR 419.22(n), that they are appropriately provided as inpatient services in accordance to with the 2-midnight benchmark under 43 CFR 412.3(e) Estimated Total Length of Stay (Days): 2 Plans for Post Hospital Care: Not yet determined Review of Systems All other systems reviewed negative except as stated in HPI PMFSH - History History Provided By: Patient, Family Member - Medical History Medical History: Medical History (Last Reviewed 05/30/18 @ 18:39 by Mendoza Moore MD) HIV (human immunodeficiency virus infection) Lung cancer Throat cancer - Surgical History Surgical History: Surgical History (Last Reviewed 05/30/18 @ 18:39 by Mendoza Moore MD) S/P lobectomy of lung - Family History Family History: Family History (Last Updated 05/30/18 @ 18:39 by Mendoza Moore MD) Other HTN (hypertension) - Social History I have reviewed the patient's Social History: Yes - Tobacco History Second Hand Smoke Exposure: Yes Tobacco Use In Past 30 Days: Yes Smoking Status: Current every day smoker Tobacco Type: Cigarettes - Alcohol History How Often Do You Have a Drink Containing Alcohol: Never - Substance Use History Substance History: No History of Abuse - Travel History Recent Travel in the [place] Within the Last 8 Weeks: No Recent Travel Out of the Country Within the Last 8 Weeks: No - Immunization History Tetanus Immunization: <5 Years Medications and Allergies Active Medications: Active Medications Sodium Chloride (Ns Flush) 2 ml IV.FLUSH BID CHERISE Sodium Chloride (Ns Flush) 2 ml IV.FLUSH PRN PRN PRN Reason: FLUSH AFTER USING IV ACCESS Allergies Allergy/AdvReac Type Severity Reaction Status Date / Time No Known Allergies Allergy Verified 05/12/18 16:38 Home Medications Medication Instructions Recorded Confirmed Type dexamethasone 4 mg PO Q6H 04/12/18 05/30/18 History mbpebhktdy-zcyljqio-fyqhsa ala 1 tab PO DAILY 04/12/18 05/30/18 History [Odefsey] famotidine 20 mg PO DAILY 04/12/18 05/30/18 History gabapentin 800 mg PO QID 04/12/18 05/30/18 History ondansetron HCl [Zofran] 8 mg PO TID PRN 04/12/18 05/30/18 History prochlorperazine maleate 10 mg PO Q6-8H PRN 04/12/18 05/30/18 History citalopram 40 mg PO DAILY 05/12/18 05/30/18 History fluticasone 2 inh INHALATION HS 05/30/18 05/30/18 History umeclidinium-vilanterol [Anoro 2 inh INHALATION Q24H 05/30/18 05/30/18 History Ellipta] Exam Vital signs: Vital Signs 05/30/18 12:25 05/30/18 16:30 Temperature 98.9 F Pulse Rate 100 H 89 Respiratory Rate 20 14 Blood Pressure 123/84 134/64 Pulse Oximetry 100 99 Intake & Output 05/29/18 05/30/18 05/30/18 18:59 06:59 18:59 Intake Total 1300 / 1300 Balance 1300 / 1300 Weight 53.977 kg Intake: IV 1300 / 1300 Zosyn 3.375 GM Premix 3.375 gm 50 / 50 In 50 ml @ 100 mls/hr IV.SIG ONCE ONE Rx#:[id number] NS Inj 1,000 ML @ 1000 mls/hr 1000 / 1000 IV.SIG BOLUS CHERISE Rx#:[id number] Vancomycin Inj 1,000 MG In NS 250 / 250 Inj 250 ML @ 250 mls/hr IV.SIG ONCE ONE Rx#:[id number] Narrative: VS: afebrile GENERAL: Well-nourished middle-aged white female who appears to be in no acute distress other than anxiety SKIN: Warm and dry. Chemotherapy port over right chest EYES: No scleral icterus. No injection or drainage. ENT: No nasal bleeding or discharge. Mucous membranes pink and moist. CARDIOVASCULAR: Regular rate and rhythm. no murmurs RESPIRATORY: No accessory muscle use. Clear to auscultation. Breath sounds equal bilaterally. GASTROINTESTINAL: Abdomen soft, non-tender, nondistended. Hepatic and splenic margins not palpable. Extremities: No clubbing, cyanosis, or edema. No obvious deformities. MUSCULOSKELETAL: Left thumb is slightly edematous with packing in place with no cristian erythema, has intact range of motion of the left hand, has a stump at her index finger due to a prior surgery in the past. There is a mild area of non- impressive erythema just proximal to her second MCP dorsal aspect hand area there is mildly tender to palpation. NEUROLOGICAL: Awake and alert. No obvious cranial nerve deficits. No facial droop nor slurred speech noted. PSYCHIATRIC: Appropriate mood and affect; insight and judgment normal. Results - Labs CBC & Chem 7: 05/30/18 13:00 05/30/18 13:00 Labs: Laboratory Results - last 24 hr 05/30/18 05/30/18 05/30/18 13:00 13:00 13:00 WBC 4.5 RBC 3.05 L Hgb 10.3 L Hct 30.5 L MCV 99.9 MCH 33.9 MCHC 33.9 RDW 17.8 H Plt Count 338 D MPV 7.9 Neut % (Auto) 76.1 H Lymph % (Auto) 15.9 [place] % (Auto) 7.6 Eos % (Auto) 0.3 Baso % (Auto) 0.1 Neut # (Auto) 3.4 Lymph # (Auto) 0.7 L [place] # (Auto) 0.3 Eos # (Auto) 0.0 Baso # (Auto) 0.0 WBC Differential . Differential Comment Auto diff final ESR Sodium 138 Potassium 3.9 Chloride 105 Carbon Dioxide 26.0 Anion Gap 7 BUN 16 Creatinine 0.66 Estimated GFR Greater than 89 Random Glucose 90 Lactic Acid 0.7 Calcium 8.9 Magnesium 1.9 Total Bilirubin 0.4 AST 10 L ALT 18 Alkaline Phosphatase 75 C-Reactive Protein 4.42 H Total Protein 7.0 Albumin 3.4 Urine Color Urine Clarity Urine pH Ur Specific [place] Urine Protein Urine Glucose (UA) Urine Ketones Urine Occult Blood Urine Nitrate Urine Bilirubin Urine Urobilinogen Ur Leukocyte Esterase Urine RBC Urine WBC Ur Squamous Epith Cells Amorphous Sediment Urine Mucus Micro UA Comment Ur Microscopic Review Urine Culture Comments 05/30/18 05/30/18 13:00 14:40 WBC RBC Hgb Hct MCV MCH MCHC RDW Plt Count MPV Neut % (Auto) Lymph % (Auto) [place] % (Auto) Eos % (Auto) Baso % (Auto) Neut # (Auto) Lymph # (Auto) [place] # (Auto) Eos # (Auto) Baso # (Auto) WBC Differential Differential Comment ESR 64 H Sodium Potassium Chloride Carbon Dioxide Anion Gap BUN Creatinine Estimated GFR Random Glucose Lactic Acid Calcium Magnesium Total Bilirubin AST ALT Alkaline Phosphatase C-Reactive Protein Total Protein Albumin Urine Color Yellow Urine Clarity Cloudy H Urine pH 7.0 Ur Specific [place] 1.014 Urine Protein Negative Urine Glucose (UA) Negative Urine Ketones Trace H Urine Occult Blood Small H Urine Nitrate Negative Urine Bilirubin Negative Urine Urobilinogen Less than 2 Ur Leukocyte Esterase Negative Urine RBC 2 Urine WBC 1 Ur Squamous Epith Cells 4 Amorphous Sediment Rare H Urine Mucus Few H Micro UA Comment Culture not ind Ur Microscopic Review Not Reportable Urine Culture Comments Culture not ind - Imaging Impressions Chest X-Ray 05/30/18 13:03 CONCLUSION: No focal or acute infiltrates. No significant change compared to the prior study. Finger X-Ray 05/30/18 13:03 CONCLUSION: 1. Soft tissue swelling involving the tip of the left thumb. 2. No fracture, dislocation or focal bony lesion noted. 3. Status post amputation of the left second digit. Caprini VTE Risk Assessment Caprini VTE Risk Assessment: Moderate/High Risk (score >= 2) Caprini Risk Assessment Model: Point Value = 1 Point Value = 2 Point Value = 3 Point Value = 5 Age 41-60 Minor surgery BMI > 25 kg/m2 Swollen legs Varicose veins or History of unexplained or recurrent spontaneous Oral contraceptives or hormone replacement Sepsis (< 1 month) Serious lung disease, including pneumonia (< 1 month) Abnormal pulmonary function Acute myocardial infarction Congestive heart failure (< 1 month) History of inflammatory bowel disease Medical patient at bed rest Age 61-74 Arthroscopic surgery Major open surgery (> 45 min) Laparoscopic surgery (> 45 min) Malignancy Confined to bed (> 72 hours) Immobilizing plaster cast Central venous access Age >= 75 History of VTE Family history of VTE Factor V Leiden Prothrombin [id number] Lupus anticoagulant Anticardiolipin antibodies Elevated serum homocysteine Heparin-induced thrombocytopenia Other congenital or acquired thrombophilia Stroke (< 1 month) Elective arthroplasty Hip, pelvis, or leg fracture Acute spinal cord injury (< 1 month) Prophylaxis Regimen: Total Risk Factor Score Risk Level Prophylaxis Regimen 0-1 Low Early ambulation 2 Moderate Order ONE of the following: *Sequential Compression Device (SCD) *Heparin 5000 units SQ BID 3-4 Higher Order ONE of the following medications: *Heparin 5000 units SQ TID *Enoxaparin/Lovenox 40 mg SQ daily (WT < 150 kg, CrCl > 30 mL/min) *Enoxaparin/Lovenox 30 mg SQ daily (WT < 150 kg, CrCl > 10-29 mL/min) *Enoxaparin/Lovenox 30 mg SQ BID (WT < 150 kg, CrCl > 30 mL/min) AND/OR *Sequential Compression Device (SCD) 5 or more Highest Order ONE of the following medications: *Heparin 5000 units SQ TID (Preferred with Epidurals) *Enoxaparin/Lovenox 40 mg SQ daily (WT < 150 kg, CrCl > 30 mL/min) *Enoxaparin/Lovenox 30 mg SQ daily (WT < 150 kg, CrCl > 10-29 mL/min) *Enoxaparin/Lovenox 30 mg SQ BID (WT < 150 kg, CrCl > 30 mL/min) AND *Sequential Compression Device (SCD) Assessment and Plan - Plan 52-year-old white female being admitted for cellulitis of the left thumb. [facility] for PEG tube issues, had PEG tube adjusted , underwent I&D of left thumb for abscess and packing. Left AMA because she felt that the hospital was not meeting up to her expectations. Hemodynamically stable upon admit. L Thumb MRSA Cellulitis s/P I&D with packing by hand surgery Dr. Espinoza at [facility]. - Pt refusing to go back to [facility] . Has had no abx for last 24 hrs with worsening pain. Consulting hand surgery here. -BC's specimens obtained in ED here -Continue vancomycin given susceptibilities from OSH Diarrhea -check for C. diff, otherwise likely 2/2 feeds HIV - continue home Odefsey Mood disorder Continue home citalopram COPD Continue home ANORO Throat Cancer -decadron Nothing by mouth, f/u outpt w/ oncologists Tube feeds
[2018-05-30] MEDS ORDERED: FLUTICASONE INH SCH (21:00)
[2018-05-30] MEDS ORDERED: Morphine Inj 4 MG/ML Vial IV.PUSH PRN (21:40)
[2018-05-30] MEDS: Gabapentin 400 MG Capsule PO SCH (22:25)
[2018-05-30] MEDS: Umeclindinium 62.5 MCG/Vilanterol 25 MCG Inhaler INH SCH (23:59)
[2018-05-31] MEDS: Vancomycin Inj 800 MG in Sodium Chlor 0.9% Inj 250 ML IV.SIG SCH ×2 (02:53→13:59)
[2018-05-31] MEDS ORDERED: EMTRICITABINE PO SCH (09:00)
[2018-05-31] MEDS ORDERED: TENOFOVIR ALAFENAMIDE PO SCH (09:00)
[2018-05-31] MEDS ORDERED: RILPIVIRINE PO SCH (09:00)
[2018-05-31] MEDS: Gabapentin 400 MG Capsule PO SCH ×5 (09:43→23:51)
--- NOTE | 2018-05-31 10:32 | P.PN ---
Subjective Interval history: Follow-up left thumb cellulitis May 31, 2018-patient seen and examined, complains of poorly controlled pain left thumb. Currently afebrile. Denies any diarrhea. Physical Exam Vital signs: Vital Signs 05/30/18 12:25 05/30/18 16:30 05/30/18 19:24 Temperature 98.9 F Pulse Rate 100 H 89 84 Respiratory Rate 20 14 16 Blood Pressure 123/84 134/64 130/61 Pulse Oximetry 100 99 99 05/30/18 20:00 05/31/18 00:00 05/31/18 04:00 Temperature 98.3 F 97.8 F 98.1 F Pulse Rate 78 77 69 Respiratory Rate 14 16 16 Blood Pressure 113/65 101/69 100/59 L Pulse Oximetry 98 99 98 05/31/18 09:29 Temperature 98.4 F Pulse Rate 81 Respiratory Rate 16 Blood Pressure 114/75 Pulse Oximetry 98 Intake & Output 05/30/18 05/31/18 05/31/18 18:59 06:59 18:59 Intake Total 1300 / 1300 258 / 258 Balance 1300 / 1300 258 / 258 Weight 53.977 kg 57.2 kg Intake: IV 1300 / 1300 258 / 258 Zosyn 3.375 GM Premix 3.375 gm 50 / 50 In 50 ml @ 100 mls/hr IV.SIG ONCE ONE Rx#:[id number] NS Inj 1,000 ML @ 1000 mls/hr 1000 / 1000 IV.SIG BOLUS [facility], [facility]1983 Rx#:[id number] Vancomycin Inj 1,000 MG In NS 250 / 250 Inj 250 ML @ 250 mls/hr IV.SIG ONCE ONE Rx#:[id number] Vancomycin Inj 800 MG In NS Inj 258 / 258 250 ML @ 250 mls/hr IV.SIG Q12H [facility] Rx#:[id number] Other: # Voids 2 Weight On Admission 57.2 kg Narrative: GENERAL: Well-nourished middle-aged white female in NAD SKIN: Warm and dry. Chemotherapy port over right chest EYES: No scleral icterus. No injection or drainage. ENT: No nasal bleeding or discharge. Mucous membranes pink and moist. CARDIOVASCULAR: Regular rate and rhythm. no murmurs RESPIRATORY: No accessory muscle use. Clear to auscultation. Breath sounds equal bilaterally. GASTROINTESTINAL: Abdomen soft, non-tender, nondistended. Hepatic and splenic margins not palpable. Extremities: No clubbing, cyanosis, or edema. No obvious deformities. MUSCULOSKELETAL: Left thumb is slightly edematous with packing in place with no cristian erythema, has intact range of motion of the left hand, has a stump at her index finger due to a prior surgery in the past. There is a mild area of non- impressive erythema just proximal to her second MCP dorsal aspect hand area there is mildly tender to palpation. NEUROLOGICAL: Awake and alert. No obvious cranial nerve deficits. No facial droop nor slurred speech noted. PSYCHIATRIC: Appropriate mood and affect; insight and judgment normal. Results - Labs CBC & Chem 7: 05/30/18 13:00 05/30/18 13:00 Laboratory Results - last 24 hr 05/30/18 05/30/18 05/30/18 13:00 13:00 13:00 WBC 4.5 RBC 3.05 L Hgb 10.3 L Hct 30.5 L MCV 99.9 MCH 33.9 MCHC 33.9 RDW 17.8 H Plt Count 338 D MPV 7.9 Neut % (Auto) 76.1 H Lymph % (Auto) 15.9 [place] % (Auto) 7.6 Eos % (Auto) 0.3 Baso % (Auto) 0.1 Neut # (Auto) 3.4 Lymph # (Auto) 0.7 L [place] # (Auto) 0.3 Eos # (Auto) 0.0 Baso # (Auto) 0.0 WBC Differential . Differential Comment Auto diff final ESR Sodium 138 Potassium 3.9 Chloride 105 Carbon Dioxide 26.0 Anion Gap 7 BUN 16 Creatinine 0.66 Estimated GFR Greater than 89 Random Glucose 90 Lactic Acid 0.7 Calcium 8.9 Magnesium 1.9 Total Bilirubin 0.4 AST 10 L ALT 18 Alkaline Phosphatase 75 C-Reactive Protein 4.42 H Total Protein 7.0 Albumin 3.4 Urine Color Urine Clarity Urine pH Ur Specific [place] Urine Protein Urine Glucose (UA) Urine Ketones Urine Occult Blood Urine Nitrate Urine Bilirubin Urine Urobilinogen Ur Leukocyte Esterase Urine RBC Urine WBC Ur Squamous Epith Cells Amorphous Sediment Urine Mucus Micro UA Comment Ur Microscopic Review Urine Culture Comments 05/30/18 05/30/18 13:00 14:40 WBC RBC Hgb Hct MCV MCH MCHC RDW Plt Count MPV Neut % (Auto) Lymph % (Auto) [place] % (Auto) Eos % (Auto) Baso % (Auto) Neut # (Auto) Lymph # (Auto) [place] # (Auto) Eos # (Auto) Baso # (Auto) WBC Differential Differential Comment ESR 64 H Sodium Potassium Chloride Carbon Dioxide Anion Gap BUN Creatinine Estimated GFR Random Glucose Lactic Acid Calcium Magnesium Total Bilirubin AST ALT Alkaline Phosphatase C-Reactive Protein Total Protein Albumin Urine Color Yellow Urine Clarity Cloudy H Urine pH 7.0 Ur Specific [place] 1.014 Urine Protein Negative Urine Glucose (UA) Negative Urine Ketones Trace H Urine Occult Blood Small H Urine Nitrate Negative Urine Bilirubin Negative Urine Urobilinogen Less than 2 Ur Leukocyte Esterase Negative Urine RBC 2 Urine WBC 1 Ur Squamous Epith Cells 4 Amorphous Sediment Rare H Urine Mucus Few H Micro UA Comment Culture not ind Ur Microscopic Review Not Reportable Urine Culture Comments Culture not ind - Imaging Impressions Chest X-Ray 05/30/18 13:03 CONCLUSION: No focal or acute infiltrates. No significant change compared to the prior study. Finger X-Ray 05/30/18 13:03 CONCLUSION: 1. Soft tissue swelling involving the tip of the left thumb. 2. No fracture, dislocation or focal bony lesion noted. 3. Status post amputation of the left second digit. Assessment and Plan - Plan 52-year-old female with L Thumb MRSA Cellulitis Currently on vancomycin pending consultation from hand surgery Patient is recent status post I&D Will request documentation from [facility] Pain management accordingly COPD No exacerbation DuoNeb as needed History of throat cancer Outpatient follow-up with oncology Currently On tube feed, however secondary to malfunctioning PEG tube will consult interventional radiology HIV Continue with home regiment Diarrhea C. difficile PCR pending Anxiety/depression Continue with Celexa
[2018-05-31] MEDS ORDERED: Lidocaine 1% Inj 50 ML Vial ONE (12:08)
[2018-05-31] MEDS ORDERED: diazePAM 5 MG Tablet PO PRN (12:53)
[2018-05-31] MEDS ORDERED: Nystatin Liq 500,000 UNIT/5 ML UDC SWISH-SWAL SCH (13:00)
[2018-05-31] MEDS ORDERED: Povidone Iodine 10% Top Soln 118 ML Bottle TOPICAL SCH (13:00)
[2018-05-31] MEDS ORDERED: Famotidine 20 MG Tablet PO SCH (13:00)
--- NOTE | 2018-05-31 13:27 | MB ---
cc: Lindsay Harper MD DATE: 05/31/2018 REQUESTING PHYSICIAN: Patient is being seen at the request of Dr. Mendoza Moore. REASON FOR CONSULTATION: History of abscess to the left thumb. HISTORY OF PRESENT ILLNESS: The patient is a 52-year-old female with a history of HIV, who recently underwent chemotherapy and radiation. Apparently, over the weekend the patient was seen by Dr. Stephen Espinoza, who performed an incision and drainage of an abscess of her left thumb. The patient reports that the thumb did very well. The patient did have the packing and apparently she had left the hospital AMA and now came to [place] with the packing still in place, the stitch in place. Also noted was some swelling on the dorsal aspect of her right hand just dorsal to the neck of the index finger metacarpal. Consultation is requested regarding evaluation and treatment of these areas. PAST MEDICAL HISTORY AND REVIEW OF SYSTEMS: Negative except as noted above as related to her recent treatment for cancer, which apparently is throat and lung. MEDICAL HISTORY: Significant for HIV, lung cancer and throat cancer. PAST SURGICAL HISTORY: The patient had a lobectomy of lung. FAMILY HISTORY: Significant for hypertension. SOCIAL HISTORY: The patient does smoke cigarettes, does not consume alcohol and denies a history of substance abuse. PHYSICAL EXAMINATION: GENERAL: The patient is lying comfortably in bed. VITAL SIGNS: Her temperature is 98.4, respirations are 16, pulse of 81, blood pressure is 114/75, her pulse oximetry is 98% on room air. HEENT: Her extraocular muscles are intact. Pupils are equal, round and reactive to light. LUNGS: Clear. HEART: Regular rate and rhythm. EXTREMITIES: Examination of her left upper extremity reveals some maceration to the pad on the palmar surface. There was a stitch in place. There is no drainage. The skin is not red and her range of motion is almost normal, slightly limited due to pain. Examination of the right hand reveals fluctuance and a scab over the dorsal aspect of the neck of the index metacarpal. There is also some redness proximal to this, the fluctuance does extend approximately for a 1.2 cm. IMPRESSION: The patient appears to have an abscess of her right hand with an inadequately drained abscess of the left thumb. PLAN: The suture will be removed from the left thumb. The patient will be placed on wound care; daily soaking and application of a povidone iodine ointment. The abscess will be drained from the right hand. The patient does understand and accept the risks and complications of the surgery. DESCRIPTION OF PROCEDURE: The patient's right hand was prepped with Betadine and draped in the usual sterile fashion. Lidocaine 1% plain was used to make a block around the area of the fluctuance. Once the anesthetic is taken effect, the scab which is present just at the distal tip of the abscess is removed and a sharp instrument is used to penetrate into the abscess cavity. Immediately thick pus is released and this is cultured. The wound was then opened proximally and additional pus was removed. The wound was then explored. The loculations are manipulated and irrigated and once the effluent is clear, it is packed with half-inch plain packing soaked in Betadine solution and then dressed with a dry dressing including a nonstick dressing, 4 x 4s, and Power. The patient is then given back to the care of the floor staff in satisfactory condition, having tolerated the procedure well. Postoperative instructions will include removing the packing in the morning and soaking the hand daily and applying the povidone iodine ointment. This is the same treatment of the left thumb. The patient is cleared for discharge when adequately treated for the MRSA. MD FAN Houser/emily/fatmata , 12:48 PM , 12:57 PM
[2018-05-31] MEDS: Nystatin/Diphenhydramine/Lidocaine Mouthwash (Adult) 120 ML Botttle SWISH-SWAL SCH ×4 (13:34→23:51)
[2018-05-31] MEDS: Acetaminophen-HYDROcodone 325/7.5 Liq 15 ML UDC PO PRN ×2 (18:57→20:43)
[2018-05-31] MEDS: Umeclindinium 62.5 MCG/Vilanterol 25 MCG Inhaler INH SCH (23:51)
[2018-05-31] MEDS: predniSONE 10 MG Tablet PO SCH (23:52)
[2018-06-01] MEDS: Acetaminophen-HYDROcodone 325/7.5 Liq 15 ML UDC PO PRN ×2 (00:24→05:05)
[2018-06-01] MEDS: Nystatin/Diphenhydramine/Lidocaine Mouthwash (Adult) 120 ML Botttle SWISH-SWAL SCH ×2 (02:44→07:45)
[2018-06-01] MEDS: Vancomycin Inj 800 MG in Sodium Chlor 0.9% Inj 250 ML IV.SIG SCH (02:50)
[2018-06-01] MEDS: predniSONE 10 MG Tablet PO SCH (05:04)
[2018-06-01 05:25] VITALS: BP 97/57; PULSE 74; RESP 16; TEMP 98; O2SAT 97
[2018-06-01 06:05] LABS: Glomerular Filtration Rate Greater Than 89 mL/min (>89)
--- NOTE | 2018-06-01 10:39 | P.PN ---
Subjective Interval history: Follow-up left thumb cellulitis May 31, 2018-patient seen and examined, complains of poorly controlled pain left thumb. Currently afebrile. Denies any diarrhea. June 01, 2018-patient seen and examined, denies any left arm pain. She had left thumb abscess laced by Plastic surgery. Afebrile Physical Exam Vital signs: Vital Signs 05/31/18 13:22 05/31/18 16:00 05/31/18 20:00 Temperature 98 F 97.8 F 98.0 F Pulse Rate 83 100 H 91 H Respiratory Rate 16 18 18 Blood Pressure 105/65 116/69 119/66 Pulse Oximetry 98 99 99 06/01/18 00:00 06/01/18 04:00 Temperature 97.8 F 98.0 F Pulse Rate 75 74 Respiratory Rate 14 16 Blood Pressure 108/60 97/57 L Pulse Oximetry 99 97 Intake & Output 05/31/18 06/01/18 06/01/18 18:59 06:59 18:59 Intake Total 258 / 258 480 / 480 258 / 258 Balance 258 / 258 480 / 480 258 / 258 Weight 58.1 kg Intake: IV 258 / 258 258 / 258 Vancomycin Inj 800 MG In NS Inj 258 / 258 258 / 258 250 ML @ 250 mls/hr IV.SIG Q12H CHERISE Rx#:[id number] Oral 240 / 240 Tube Feeding 240 / 240 Other: # Voids 4 3 Narrative: GENERAL: Well-nourished middle-aged white female in NAD SKIN: Warm and dry. Chemotherapy port over right chest EYES: No scleral icterus. No injection or drainage. ENT: No nasal bleeding or discharge. Mucous membranes pink and moist. CARDIOVASCULAR: Regular rate and rhythm. no murmurs RESPIRATORY: No accessory muscle use. Clear to auscultation. Breath sounds equal bilaterally. GASTROINTESTINAL: Abdomen soft, non-tender, nondistended. Hepatic and splenic margins not palpable. Extremities: No clubbing, cyanosis, or edema. No obvious deformities. MUSCULOSKELETAL: Left thumb is slightly edematous with packing in place with no cristian erythema, has intact range of motion of the left hand, has a stump at her index finger due to a prior surgery in the past. There is a mild area of non- impressive erythema just proximal to her second MCP dorsal aspect hand area there is mildly tender to palpation. NEUROLOGICAL: Awake and alert. No obvious cranial nerve deficits. No facial droop nor slurred speech noted. PSYCHIATRIC: Appropriate mood and affect; insight and judgment normal. Results - Labs CBC & Chem 7: 05/30/18 13:00 06/01/18 05:20 Laboratory Results - last 24 hr 06/01/18 05:20 Creatinine 0.60 Estimated GFR Greater than 89 Microbiology 05/30/18 13:20 Blood - Peripheral Aerobic Blood Culture - Preliminary No growth in 1 day 05/30/18 13:20 Blood - Peripheral Anaerobic Blood Culture - Preliminary No growth in 1 day 05/30/18 13:15 Blood - Peripheral Aerobic Blood Culture - Preliminary No growth in 1 day 05/30/18 13:15 Blood - Peripheral Anaerobic Blood Culture - Preliminary No growth in 1 day - Procedures none Assessment and Plan - Plan 52-year-old female with L Thumb MRSA Cellulitis Currently on vancomycin, however will switch to p.o. clindamycin and Bactrim on discharge. Patient is recent status post I&D, appreciate input from hand surgery Pain management accordingly COPD No exacerbation DuoNeb as needed History of throat cancer Outpatient follow-up with oncology Currently On tube feed, however secondary to malfunctioning PEG tube will consult interventional radiology HIV Continue with home regiment Diarrhea C. difficile PCR pending Anxiety/depression Continue with Celexa
--- NOTE | 2018-06-01 10:41 | P.DS ---
Date of admission: 05/30/18 17:29 Primary care physician: Demetrio Tee DO Brief History from admission: 52-year-old white female being admitted for L thumb cellulitis. Hx of HIV and throat CA. Patient presented to [place] today after being called by [facility] delores Han that her wound culture from her left thumb for which she underwent a I&D w/ packing and then left AMA a few days ago was growing MRSA. Patient left AMA yesterday morning, since then she says she is felt subjective fevers, N/V, watery stools and worsening thumb pain. Patient not sure exactly what antibiotics she was receiving there. She underwent I&D by Dr. Stephen Espinoza w/ packing, and had her PEG tube adjusted by Dr. Marcos Alberts. Patient states that her thumb infx started when she had a splinter injury just under a week ago, pulled the splinter out with her teeth. She also noted that her PEG tube was not functioning where she wanted it and thus she presented to the [facility]'s ED. Patient states she specifically decided come back to [place] because this was the hospital that she had her chemoradiation completed for her throat cancer.In the ED here she has no elevated white count, blood work is unremarkable except for ESR up at 64. Blood cultures were pulled. Given a dose of vancomycin and Zosyn. Sees Dr. Joesph Jacobs for her HIV, says she is on 1 antimicrobial a day for HAART. Says that she is previously lost her left index finger secondary to an MRSA infection. DS: Medications - Discharge Medications Prescriptions: clindamycin HCl 300 mg PO TID #21 cap prednisone 25 mg PO Q8HR #10 tab sulfamethoxazole-trimethoprim [Bactrim DS] 1 tab PO Q12H #14 tab DS: Summary Hospital Course: While in hospital, patient was treated for: L Thumb MRSA Cellulitis Treated with vancomycin, however will switch to p.o. clindamycin and Bactrim on discharge. Patient is recent status post I&D, appreciate input from hand surgery Pain management accordingly COPD No exacerbation DuoNeb as needed History of throat cancer Outpatient follow-up with oncology Currently On tube feed HIV Continue with home regiment Diarrhea C. difficile PCR pending Anxiety/depression Continue with Celexa - Time Spent with Patient Total time spent providing and/or coordinating discharge services: Less than 30 minutes Exam Vital signs: Vital Signs 05/31/18 13:22 05/31/18 16:00 05/31/18 20:00 Temperature 98 F 97.8 F 98.0 F Pulse Rate 83 100 H 91 H Respiratory Rate 16 18 18 Blood Pressure 105/65 116/69 119/66 Pulse Oximetry 98 99 99 06/01/18 00:00 06/01/18 04:00 Temperature 97.8 F 98.0 F Pulse Rate 75 74 Respiratory Rate 14 16 Blood Pressure 108/60 97/57 L Pulse Oximetry 99 97 Intake & Output 05/31/18 06/01/18 06/01/18 18:59 06:59 18:59 Intake Total 258 / 258 480 / 480 258 / 258 Balance 258 / 258 480 / 480 258 / 258 Weight 58.1 kg Intake: IV 258 / 258 258 / 258 Vancomycin Inj 800 MG In NS Inj 258 / 258 258 / 258 250 ML @ 250 mls/hr IV.SIG Q12H CHERISE Rx#:[id number] Oral 240 / 240 Tube Feeding 240 / 240 Other: # Voids 4 3 Narrative: GENERAL: Well-nourished middle-aged white female in NAD SKIN: Warm and dry. Chemotherapy port over right chest EYES: No scleral icterus. No injection or drainage. ENT: No nasal bleeding or discharge. Mucous membranes pink and moist. CARDIOVASCULAR: Regular rate and rhythm. no murmurs RESPIRATORY: No accessory muscle use. Clear to auscultation. Breath sounds equal bilaterally. GASTROINTESTINAL: Abdomen soft, non-tender, nondistended. Hepatic and splenic margins not palpable. Extremities: No clubbing, cyanosis, or edema. No obvious deformities. MUSCULOSKELETAL: Left thumb is slightly edematous with packing in place with no cristian erythema, has intact range of motion of the left hand, has a stump at her index finger due to a prior surgery in the past. There is a mild area of non- impressive erythema just proximal to her second MCP dorsal aspect hand area there is mildly tender to palpation. NEUROLOGICAL: Awake and alert. No obvious cranial nerve deficits. No facial droop nor slurred speech noted. PSYCHIATRIC: Appropriate mood and affect; insight and judgment normal. Results Procedures completed during hospitalization: none Labs on day of discharge: Labs from last 24 hours 06/01/18 05:20 Creatinine 0.60 Estimated GFR Greater than 89 Preliminary micro results at discharge 05/30/18 13:20 Aerobic Blood Culture - Preliminary Blood - Peripheral No growth in 1 day Anaerobic Blood Culture - Preliminary No growth in 1 day 05/30/18 13:15 Aerobic Blood Culture - Preliminary Blood - Peripheral No growth in 1 day Anaerobic Blood Culture - Preliminary No growth in 1 day - Impressions ITS Impressions Chest X-Ray 05/30/18 13:03 CONCLUSION: No focal or acute infiltrates. No significant change compared to the prior study. Finger X-Ray 05/30/18 13:03 CONCLUSION: 1. Soft tissue swelling involving the tip of the left thumb. 2. No fracture, dislocation or focal bony lesion noted. 3. Status post amputation of the left second digit. Discharge Plan - Discharge Disposition Patient Disposition: Discharge Home - Discharge Condition Condition: Fair - Discharge Order Discharge Orders: Discharge Order (Routine); Ordered 06/01/18 Ordered By: Oscar Kelly - Physicians Team Primary Care Provider: Demetrio Tee Attending Provider: Oscar Kelly Other Providers: Lindsay Harper MD
[2018-06-01] MEDS ORDERED: Pharmacy Ordered Lab Info OTHER ONE (13:45)
== END 2018-06-01 11:48 | disposition home or self-care (01) | DRG 580 ==
LOC: NEDA 12:11 → NEPC 12:11 → NEDA 19:29 → HCIN 19:47
PROVIDERS: ADMIT Hospitalist; ATTEND Hospitalist
CPT/HCPCS: 71010; 71045; 73140; 80053; 81001; 82565; 83605; 83735; 85025; 85651; 85652; 86140; 86403; 87040; 87070; 87186; 87205; 90765; 90775; 96365; 96375; 97162; 99285; J2270; J2405; J2543; J3370; J7030; J7050; J7506; J7512; J8540; Q0164